=== PATIENT | female | born 1990 | race Caucasian/White ===

== ENCOUNTER 2017-06-14 10:00 | Emergency (ER) | payer SELFPAY ==
[2017-06-14 10:17] VITALS: BP 122/73
--- NOTE | 2017-06-14 10:53 | UC ---
Respiratory Complaint HPI - HPI Summary HPI Summary: 27yo WF smoker c/o productive cough x 3-4 days associated with yellow green sputum with pleuritic CP, denies f/c - History of Current Complaint Chief Complaint: UCRespiratory Stated Complaint: COUGH,CONGESTION,VOMITTING Time Seen by Provider: 06/14/17 10:38 Hx Obtained From: Patient Hx Last Menstrual Period: IUD in place Onset/Duration: Gradual Onset Severity Currently: Moderate Character: Cough: Productive Alleviating Factors: OTC Meds Associated Signs And Symptoms: Positive: Pleuritic Chest Pain - Allergies/Home Medications Allergies/Adverse Reactions: Allergies Allergy/AdvReac Type Severity Reaction Status Date / Time No Known Allergies Allergy Verified 06/14/17 10:11 Home Medications: Home Medications [id number] W/ APAP [Delsym Cough + Cold D... 4-00-731-325 mg/10Ml] 1 liq PO 06/14/17 [History] PMH/Surg Hx/FS Hx/Imm Hx Respiratory History: Bronchitis Other History Of: Negative For: Anticoagulant Therapy - Surgical History Surgical History: Yes Surgery Procedure, Year, and Place: Tonsillectomy, Appendectomy on 02/27/14 - Family History Known Family History: Positive: Other - NONCONTRIBUTORY - Social History Alcohol Use: None Alcohol Amount: social prior to Substance Use Type: None Substance Use Comment - Amount & Last Used: Pt reports that jemal was using substance around her over a week ago Smoking Status (MU): Light Every Day Tobacco Smoker Type: Cigarettes Amount Used/How Often: 3-5 cigs per day Have You Smoked in the Last Year: Yes Household Exposure Type: Cigarettes - Immunization History Most Recent Influenza Vaccination: 04/18/14 Most Recent Tetanus Shot: unknown Most Recent Pneumonia Vaccination: none Review of Systems Constitutional: Negative Skin: Negative Eyes: Negative ENT: Negative Respiratory: Cough Cardiovascular: Negative Gastrointestinal: Negative Genitourinary: Negative Motor: Negative Neurovascular: Negative Musculoskeletal: Negative Neurological: Negative Psychological: Negative All Other Systems Reviewed And Are Negative: Yes Physical Exam Triage Information Reviewed: Yes Vital Signs: Initial Vital Signs Temp 36.6 C 06/14/17 10:13 Pulse 74 06/14/17 10:13 Resp 16 06/14/17 10:13 BP 122/73 06/14/17 10:13 Pulse Ox 97 06/14/17 10:13 Eye Exam: Normal ENT Exam: Normal Dental Exam: Normal Neck exam: Normal Neck: Positive: 1 Respiratory: Positive: Lungs clear, Other: - coarse BS B/L. Negative: Crackles , Rhonchi, Stridor, Wheezing Cardiovascular Exam: Normal Abdominal Exam: Normal Musculoskeletal Exam: Normal Neurological Exam: Normal Psychological Exam: Normal Skin Exam: Normal UC Diagnostic Evaluation - Laboratory O2 Sat by Pulse Oximetry: 97 Respiratory Course/Dx - Differential Dx/Diagnosis Provider Diagnoses: bronchitis Discharge - Discharge Plan Condition: Stable Disposition: HOME Prescriptions: Azithromyxin DARREN (NF) [Z-Darren (Zithromax) 250 mg tabs #6] 2 tab PO .TODAY, THEN 1 DAILY #6 tab Patient Education Materials: Acute Bronchitis (ED) Referrals: No Primary Care Phys,NOPCP [Primary Care Provider] - If Needed Additional Instructions: as tolerated, take Mucinex DM OTC BID
== END 2017-06-14 10:55 | disposition home or self-care (01) ==
LOC: UCEAST 10:00
DX: J40 Bronchitis, not specified as acute or chronic (principal); Z72.0 Tobacco use; Z77.22 Contact with and (suspected) exposure to environmental tobacco smoke (acute) (chronic)
CPT/HCPCS: 99212; G0463

== ENCOUNTER 2017-07-27 21:32 | Emergency (ER) | payer SELFPAY ==
[2017-07-27 21:38] VITALS: BP 134/84
[2017-07-27] MEDS ORDERED: PROCHLORPERAZINE INJ 5 MG/ML 2 ML VIAL IM ONE (21:52)
[2017-07-27] MEDS ORDERED: HYDROmorphone INJ* 2 MG/ML CARPUJECT SYRINGE IM ONE (21:52)
--- NOTE | 2017-07-27 23:45 | ED ---
Evleio Higuera Nilda, scribed for Elan Giles MD on 07/27/17 at 2204 . Burn - HPI Summary HPI Summary: This patient is a 27 year old F presenting to [facility] accompanied by with a chief complaint of constant painful burn on right hand s/p accidentally spilling grease from pork roast on it at about 1930 this evening. The patient rates the pain 10/10 in severity. Symptoms aggravated by nothing and alleviated by cold compress. - History of Current Complaint Chief Complaint: EDBurnSmokeInh Stated Complaint: RT HAND BURN Time Seen by Provider: 07/27/17 21:47 Hx Obtained From: Patient Hx Last Menstrual Period: IUD in place Occurred: Hours Ago Current Severity: Severe Pain Intensity: 10 Pain Scale Used: 0-10 Numeric Location: RUE - right hand Character: Scald - grease Aggravating: Nothing Alleviating: Other - cold compress - Allergy/Home Medications Allergies/Adverse Reactions: Allergies Allergy/AdvReac Type Severity Reaction Status Date / Time No Known Allergies Allergy Verified 07/27/17 21:38 PMH/Surg Hx/FS Hx/Imm Hx Endocrine/Hematology History: Denies: Hx Anticoagulant Therapy, Hx Blood Disorders, Hx Blood Transfusions, Hx Bone Marrow Disease, Hx Diabetes, Hx Systemic Lupus Erythematosus, Hx Sickle Cell Disease, Hx Thyroid Disease, Hx Anemia, Hx Unexplained Bleeding, Other Endocrine/Hematological Disorders Cardiovascular History: Denies: Hx Hypertension Respiratory History: Denies: Hx Asthma, Hx Chronic Obstructive Pulmonary Disease (COPD) GI History: Reports: Other GI Disorders - Gall bladder "sludge" Denies: Hx Ulcer History: Reports: Hx Kidney Stones Musculoskeletal History: Reports: Hx Scoliosis Sensory History: Reports: Hx Contacts or Glasses Denies: Other Sensory Impairments Opthamlomology History: Reports: Hx Contacts or Glasses Denies: Other Sensory Impairments Neurological History: Denies: Hx Headaches, Other Neuro Impairments/Disorders Psychiatric History: Denies: Other Psychiatric Issues/Disorders - Cancer History Cancer Type, 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 Hx Chemotherapy: No Hx Radiation Therapy: No Hx Palliative Cancer Treatment: No - Surgical History Surgery Procedure, Year, and Place: Tonsillectomy, Appendectomy on 02/27/14 Hx Anesthesia Reactions: No - Immunization History Date of Tetanus Vaccine: PT STATES UNSURE Date of Influenza Vaccine: NONE Infectious Disease History: No Infectious Disease History: Denies: Hx Clostridium Difficile, Hx Hepatitis, Hx Human Immunodeficiency Virus (HIV), Hx of Known/Suspected MRSA, Hx Shingles, Hx Tuberculosis, Traveled Outside the [place] in Last 30 Days - Family History Known Family History: Positive: Diabetes, Other - NONCONTRIBUTORY - Social History Lives: With Family Alcohol Use: None Alcohol Amount: social prior to Substance Use Type: Reports: None Substance Use Comment - Amount & Last Used: Pt reports that jemal was using substance around her over a week ago Smoking Status (MU): Light Every Day Tobacco Smoker Type: Cigarettes Amount Used/How Often: 3-5 cigs per day Have You Smoked in the Last Year: Yes Review of Systems Negative: Shortness Of Breath Positive: Other - burn on right hand All Other Systems Reviewed And Are Negative: Yes Physical Exam - Summary Physical Exam Summary: VITAL SIGNS: Reviewed. GENERAL: Patient is a well-developed and nourished female who is lying comfortable in the stretcher. Patient is not in any acute respiratory distress. HEAD AND FACE: No signs of trauma. No ecchymosis, hematomas or skull depressions. No sinus tenderness. EYES: PERRLA, EOMI x 2, No injected conjunctiva, no nystagmus. EARS: Hearing grossly intact. Ear canals and tympanic membranes are within normal limits. MOUTH: Oropharynx within normal limits. NECK: Supple, trachea is midline, no adenopathy, no JVD, no carotid bruit, no c- spine tenderness, neck with full ROM. CHEST: Symmetric, no tenderness at palpation LUNGS: Clear to auscultation bilaterally. No wheezing or crackles. CVS: Regular rate and rhythm, S1 and S2 present, no murmurs or gallops appreciated. ABDOMEN: Soft, non-tender. No signs of distention. No rebound no guarding, and no masses palpated. Bowel sounds are normal. EXTREMITIES: FROM in all major joints, no edema, no cyanosis or clubbing. NEURO: Alert and oriented x 3. No acute neurological deficits. Speech is normal and follows commands. SKIN: Dry and warm, 1st degree over dorsum of right hand Triage Information Reviewed: Yes Vital Signs On Initial Exam: Initial Vitals Temp Pulse Resp BP Pulse Ox 97.5 F 69 16 134/84 97 07/27/17 21:35 07/27/17 21:35 07/27/17 21:35 07/27/17 21:35 07/27/17 21:35 Vital Signs Reviewed: Yes Burn Calculation - [place] Formula for Fluid Resuscitation Weight: 53.524 kg 24 -Hour Fluid Replacement: 0.0 Diagnostics - Vital Signs Vital Signs Temp Pulse Resp BP Pulse Ox 07/27/17 21:35 97.5 F 69 16 134/84 97 - Laboratory Lab Statement: Any lab studies that have been ordered have been reviewed, and results considered in the medical decision making process. Burn Course/Dx - Course Assessment/Plan: This patient is a 27 year old F presenting to [facility] accompanied by with a chief complaint of constant painful burn on right hand s/p accidentally spilling grease from pork roast on it at about 1930 this evening. Pt will be D/C home with pain meds and follow up and PCP. Dx of first degree burn of right hand. - Diagnoses Provider Diagnosis: First degree burn of right hand Discharge - Discharge Plan Condition: Stable Disposition: HOME Prescriptions: oxyCODONE/Acetamin 5/325 MG* [Percocet 5/325 TAB*] 1 tab PO Q6H PRN #14 tab MDD 4 PRN Reason: Pain Patient Education Materials: Superficial Burn (ED) Referrals: [facility]IAN REFERRAL [Outside] - 3 Days No Primary Care Phys,NOPCP [Primary Care Provider] - Additional Instructions: RETURN TO THE EMERGENCY DEPARTMENT FOR CHANGING OR WORSENING SYMPTOMS The documentation as recorded by the Evelio wade Nilda accurately reflects the service I personally performed and the decisions made by me, Elan Giles MD.
== END 2017-07-28 00:04 | disposition home or self-care (01) ==
LOC: ED 21:32
DX: T23.161A Burn of first degree of back of right hand, initial encounter (principal); X12.XXXA Contact with other hot fluids, initial encounter; Y93.G3 Activity, cooking and baking; Y92.9 Unspecified place or not applicable; F17.210 Nicotine dependence, cigarettes, uncomplicated
CPT/HCPCS: 96372; 99282; J0780; J1170

== ENCOUNTER 2017-07-31 10:42 | Emergency (ER) | payer SELFPAY ==
[2017-07-31 10:50] VITALS: BP 101/73
--- NOTE | 2017-07-31 11:42 | UC ---
HPI BURN - HPI Summary HPI Summary: Burnt back of right hand near thumb and index finger entire area about 8cm diameter---does have 3 smaller areas of blister that have opened and has purents areas , patient reports increased pain in hand and fingers, no fever or streaking - History of Current Complaint Chief Complaint: UCBurn Stated Complaint: RIGHT HAND BURN Time Seen by Provider: 07/31/17 11:32 Hx Obtained From: Patient Hx Last Menstrual Period: IUD Occurred: Days Ago - 4 Length of Exposure: Seconds Onset Severity: Moderate Current Severity: Moderate Pain Intensity: 6 Pain Scale Used: 0-10 Numeric Location: RUE Character: Direct Thermal Contact Aggravating Factor(s): Other - touch movement Alleviating Factor(s): Nothing Associated Signs & Symptoms: Positive: Negative Occupational Injury: No - Allergy/Home Medications Allergies/Adverse Reactions: Allergies Allergy/AdvReac Type Severity Reaction Status Date / Time No Known Allergies Allergy Verified 07/31/17 10:50 Home Medications: Home Medications Ibuprofen [Ibuprofen 200 MG] 600 mg PO Q6HR PRN 07/31/17 [History Confirmed ] PMH/Surg Hx/FS Hx/Imm Hx Previously Healthy: Yes Other History Of: Negative For: Anticoagulant Therapy - Surgical History Surgical History: Yes Surgery Procedure, Year, and Place: Tonsillectomy, Appendectomy on 02/27/14 - Family History Known Family History: Positive: Diabetes, Other - NONCONTRIBUTORY - Social History Occupation: Employed Full-time Lives: With Family Alcohol Use: Occasionally Alcohol Amount: social prior to Substance Use Type: None, Sedatives Smoking Status (MU): Light Every Day Tobacco Smoker Type: Cigarettes Amount Used/How Often: 8cig/day Have You Smoked in the Last Year: Yes Household Exposure Type: Cigarettes - Immunization History Most Recent Influenza Vaccination: NOT UTD Most Recent Tetanus Shot: UNKNOWN Most Recent Pneumonia Vaccination: none Review of Systems Constitutional: Negative Skin: Other - 8 cm diameter burn back of right hand with 3 seperat purulent areas Eyes: Negative ENT: Negative Respiratory: Negative Cardiovascular: Negative Gastrointestinal: Negative Genitourinary: Negative Motor: Negative Neurovascular: Negative Musculoskeletal: Negative, Arthralgia Neurological: Negative Psychological: Negative Is Patient Immunocompromised?: No All Other Systems Reviewed And Are Negative: Yes Physical Exam Triage Information Reviewed: Yes Appearance: Well-Appearing, Well-Nourished, Pain Distress Vital Signs: Initial Vital Signs Temp 98.4 F 07/31/17 10:46 Pulse 81 07/31/17 10:46 Resp 16 07/31/17 10:46 BP 101/73 07/31/17 10:46 Pulse Ox 99 07/31/17 10:46 Vital Signs Reviewed: Yes Eye Exam: Normal Eyes: Positive: Conjunctiva Clear ENT Exam: Normal ENT: Positive: Normal ENT inspection, Hearing grossly normal, Pharynx normal, TMs normal, Uvula midline. Negative: Nasal congestion, TM bulging, Tonsillar swelling, Tonsillar exudate, Trismus, Muffled voice, Hoarse voice Dental Exam: Normal Neck exam: Normal Neck: Positive: Supple, Nontender, No Lymphadenopathy Respiratory Exam: Normal Respiratory: Positive: Chest non-tender, Lungs clear, Normal breath sounds, No respiratory distress, No accessory muscle use Cardiovascular Exam: Normal Cardiovascular: Positive: RRR, No Murmur, Pulses Normal, Brisk Capillary Refill Musculoskeletal Exam: Normal Musculoskeletal: Positive: Strength Intact, ROM Intact, No Edema Neurological Exam: Normal Neurological: Positive: Alert, Muscle Tone Normal Psychological Exam: Normal Psychological: Positive: Normal Response To Family Skin Exam: Other Skin: Positive: Other - 4 day old partial thickness burn as described Burn Calculation - Trunk / Post. 18% Trunk /Post. 2nd De - abour 1/2 % right hand - Total 2nd Deg Total: 1 Total % BSA: 1 - [place] Formula for Fluid Resuscitation Weight: 52.163 kg Total % BSA 2nd & 3rd Degree: 1 24 -Hour Fluid Replacement: 208.7 Re-Evaluation - Re-Evaluation First Eval Change: Improved - silvadened dressing with vaseline guze and tegaderm Course/Dx Burn - Course Course Of Treatment: silvadene, keflex, pain med, dsd 1-2 times a day follow with burn surgeon - Diagnoses Clinic Provider Diagnoses: <1/2% burn back of right hand-partial thickness Discharge - Discharge Plan Condition: Stable Disposition: HOME Prescriptions: Cephalexin CAP* [Keflex CAP*] 500 mg PO QID #28 cap Ibuprofen TAB* [Motrin TAB* 600 MG] 600 mg PO Q6H PRN #40 tab PRN Reason: Pain - Mild To Moderate oxyCODONE/Acetamin 5/325 MG* [Percocet 5/325 TAB*] 1 tab PO Q6H PRN #16 tab MDD 4 PRN Reason: Pain - Moderate To Severe Patient Education Materials: Second Degree Burn (ED) Forms: *Work Release Referrals: Rudi London MD [Medical Doctor] - 4 Days
[2017-07-31] MEDS ORDERED: Silver Sulfadiazine 1%* 20 GM TOPICAL ONE (11:47)
[2017-07-31] MEDS ORDERED: Tetan/Diph/Pertus SYR(Tdap)* 0.5 ML SYR(BOOSTRIX) use SYR IM ONE (11:49)
[2017-07-31] MEDS ORDERED: Ibuprofen TAB* 600 MG PO ONE (12:15)
== END 2017-07-31 12:36 | disposition home or self-care (01) ==
LOC: UCEAST 10:42
DX: T23.261A Burn of second degree of back of right hand, initial encounter (principal); T31.0 Burns involving less than 10% of body surface; X08.8XXA Exposure to other specified smoke, fire and flames, initial encounter; Y93.9 Activity, unspecified; Y92.9 Unspecified place or not applicable; Z23 Encounter for immunization; F17.210 Nicotine dependence, cigarettes, uncomplicated
CPT/HCPCS: 16020; 90471; 90715; 99212; A9270-GY; G0463

== ENCOUNTER 2017-08-18 09:17 | Emergency (ER) | payer SELFPAY ==
[2017-08-18 09:32] VITALS: BP 119/78
[2017-08-18] MEDS ORDERED: predniSONE TAB* 20 MG PO ONE (09:32)
--- NOTE | 2017-08-18 09:36 | UC ---
Skin Complaint HPI - HPI Summary HPI Summary: 27 yo female developed hives yesterday AM has taken nothing for them worse today recent URI no angioedema no stridor no throat tightness no tongue swelling no new meds (finished keflex one week ago) - History of Current Complaint Chief Complaint: UCAllergicReaction Time Seen by Provider: 08/18/17 09:23 Stated Complaint: ALLERGIC REACTION Hx Obtained From: Patient Hx Last Menstrual Period: iud Onset/Duration: Gradual Onset, Lasting Days Timing: Constant Onset Severity: Moderate Pain Intensity: 0 Pain Scale Used: 0-10 Numeric Location: Diffuse Character: Pruritus, Hives Aggravating Factor(s): Clothing, Showering Alleviating Factor(s): Nothing Associated Signs & Symptoms: Positive: Rash - Allergy/Home Medications Allergies/Adverse Reactions: Allergies Allergy/AdvReac Type Severity Reaction Status Date / Time No Known Allergies Allergy Verified 07/31/17 10:50 Review of Systems Constitutional: Negative Skin: Rash Eyes: Negative ENT: Other - recent mild URI Respiratory: Negative Cardiovascular: Negative Gastrointestinal: Negative Genitourinary: Negative Motor: Negative Neurovascular: Negative Musculoskeletal: Negative Neurological: Negative Psychological: Negative Is Patient Immunocompromised?: No All Other Systems Reviewed And Are Negative: Yes PMH/Surg Hx/FS Hx/Imm Hx Previously Healthy: Yes Other History Of: Negative For: Anticoagulant Therapy - Surgical History Surgical History: Yes Surgery Procedure, Year, and Place: Tonsillectomy, Appendectomy on 02/27/14 - Family History Known Family History: Positive: Diabetes, Other - NONCONTRIBUTORY - Social History Alcohol Use: Occasionally Alcohol Amount: social prior to Substance Use Type: None, Sedatives Substance Use Comment - Amount & Last Used: Pt reports that jemal was using substance around her over a week ago Smoking Status (MU): Light Every Day Tobacco Smoker Type: Cigarettes Amount Used/How Often: 8cig/day Have You Smoked in the Last Year: Yes Household Exposure Type: Cigarettes - Immunization History Most Recent Influenza Vaccination: NOT UTD Most Recent Tetanus Shot: UNKNOWN Most Recent Pneumonia Vaccination: none Physical Exam Triage Information Reviewed: Yes Appearance: Well-Appearing, No Pain Distress, Well-Nourished Vital Signs: Initial Vital Signs Temp 98.1 F 08/18/17 09:26 Pulse 120 08/18/17 09:26 Resp 18 08/18/17 09:26 BP 119/78 08/18/17 09:26 Pulse Ox 99 08/18/17 09:26 Vital Signs Reviewed: Yes Eyes: Positive: Conjunctiva Clear ENT: Positive: Hearing grossly normal. Negative: Nasal congestion, Nasal drainage, TMs normal Neck: Positive: Supple, Nontender Respiratory: Positive: Lungs clear, Normal breath sounds, No respiratory distress Cardiovascular: Positive: RRR, No Murmur Neurological: Positive: Alert Psychological Exam: Normal Skin: Positive: Other - urticaria Course/Dx - Diagnoses Provider Diagnoses: urticaria Discharge - Discharge Plan Condition: Stable Disposition: HOME Prescriptions: hydrOXYzine HCL TAB* [Atarax TAB*] 25 mg PO QID PRN #20 tab PRN Reason: Itching predniSONE [Prednisone] 60 mg PO DAILY #6 tab Patient Education Materials: Urticaria (ED) Forms: *Work Release Referrals: [facility] REFERR[facility] [Outside] - If Needed Additional Instructions: the antihistamine will cause drowsiness you had today's dose of prednisone recheck in 3-4 days if not better recheck for worsening symptoms
== END 2017-08-18 09:48 | disposition home or self-care (01) ==
LOC: UCEAST 09:17
DX: L50.9 Urticaria, unspecified (principal); F17.210 Nicotine dependence, cigarettes, uncomplicated
CPT/HCPCS: 99212; G0463; J7512

== ENCOUNTER 2017-08-19 03:13 | Emergency (ER) | payer SELFPAY ==
[2017-08-19] MEDS ORDERED: LORazepam INJ* 2 MG/ML 1 ML VIAL IV PUSH ONE (03:45)
[2017-08-19] MEDS ORDERED: NS 0.9% 1000 ML* 1,000 ML IV ONE (03:46)
[2017-08-19] MEDS ORDERED: Albuterol/Ipratropium NEB.SOL* Albuterol 2.5 MG/Ipratropium 0.5 MG 3 ML INH ONE (04:37)
[2017-08-19] MEDS ORDERED: methylPREDNISolone 125 MG* 2 ML VIAL IV ONE (04:39)
[2017-08-19] MEDS: Albuterol 2.5 MG/3 ML NEB.SOL* (0.083%) INH SCH (04:57)
[2017-08-19] MEDS ORDERED: Albuterol HFA INHALER* 8 gm MDI INH PRN (05:47)
[2017-08-19 06:43] VITALS: BP 109/51
--- NOTE | 2017-08-19 06:48 | ED ---
Todd Higuera Gabriel, scribed for Elan Giles MD on 08/19/17 at 0415 . Respiratory - HPI Summary HPI Summary: This patient is a 27 year old F presenting to [facility] with a chief complaint of trouble breathing that began earlier tonight. Patient was seen at yesterday for her hives and was given prednisone and hydroxyzine. Pt denies itching of hives. Last dose of prednisone was at 0900 yesterday. Patient believed she was having a panic attack yesterday. No hx of asthma. - History of Current Complaint Chief Complaint: EDAllergicReaction Stated Complaint: HIVES, DIFFICULTY BREATHING Time Seen by Provider: 08/19/17 03:30 Hx Obtained From: Patient Onset/Duration: Still Present Timing: Constant Initial Severity: Mild Current Severity: Mild Pain Intensity: 0 Associated Signs and Symptoms: Negative - itching - Allergy/Home Medications Allergies/Adverse Reactions: Allergies Allergy/AdvReac Type Severity Reaction Status Date / Time No Known Allergies Allergy Verified 08/19/17 03:21 PMH/Surg Hx/FS Hx/Imm Hx Endocrine/Hematology History: Denies: Hx Anticoagulant Therapy, Hx Blood Disorders, Hx Blood Transfusions, Hx Bone Marrow Disease, Hx Diabetes, Hx Systemic Lupus Erythematosus, Hx Sickle Cell Disease, Hx Thyroid Disease, Hx Anemia, Hx Unexplained Bleeding, Other Endocrine/Hematological Disorders Cardiovascular History: Denies: Hx Hypertension Respiratory History: Denies: Hx Asthma, Hx Chronic Obstructive Pulmonary Disease (COPD) GI History: Reports: Other GI Disorders - Gall bladder "sludge" Denies: Hx Ulcer History: Reports: Hx Kidney Stones Musculoskeletal History: Reports: Hx Scoliosis Sensory History: Reports: Hx Contacts or Glasses Denies: Other Sensory Impairments Opthamlomology History: Reports: Hx Contacts or Glasses Denies: Other Sensory Impairments Neurological History: Denies: Hx Headaches, Other Neuro Impairments/Disorders Psychiatric History: Denies: Other Psychiatric Issues/Disorders - Cancer History Cancer Type, 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 Hx Chemotherapy: No Hx Radiation Therapy: No Hx Palliative Cancer Treatment: No - Surgical History Surgery Procedure, Year, and Place: Tonsillectomy, Appendectomy on 02/27/14 Hx Anesthesia Reactions: No - Immunization History Date of Tetanus Vaccine: PT STATES UNSURE Date of Influenza Vaccine: NONE Infectious Disease History: No Infectious Disease History: Denies: Hx Clostridium Difficile, Hx Hepatitis, Hx Human Immunodeficiency Virus (HIV), Hx of Known/Suspected MRSA, Hx Shingles, Hx Tuberculosis, Traveled Outside the [place] in Last 30 Days - Family History Known Family History: Positive: Diabetes, Other - NONCONTRIBUTORY - Social History Alcohol Use: Occasionally Alcohol Amount: social prior to Substance Use Type: Reports: Marijuana Substance Use Comment - Amount & Last Used: Pt reports that jemal was using substance around her over a week ago Smoking Status (MU): Light Every Day Tobacco Smoker Type: Cigarettes Amount Used/How Often: 8cig/day Have You Smoked in the Last Year: Yes Review of Systems Positive: Other - trouble breathing Positive: Other - hives without itching All Other Systems Reviewed And Are Negative: Yes Physical Exam - Summary Physical Exam Summary: VITAL SIGNS: Reviewed. GENERAL: Patient is a well-developed and nourished female who is lying comfortable in the stretcher. Patient is not in any acute respiratory distress. HEAD AND FACE: No signs of trauma. No ecchymosis, hematomas or skull depressions. No sinus tenderness. EYES: PERRLA, EOMI x 2, No injected conjunctiva, no nystagmus. EARS: Hearing grossly intact. Ear canals and tympanic membranes are within normal limits. MOUTH: Oropharynx within normal limits. NECK: Supple, trachea is midline, no adenopathy, no JVD, no carotid bruit, no c- spine tenderness, neck with full ROM. CHEST: Symmetric, no tenderness at palpation LUNGS: Clear to auscultation bilaterally. No wheezing or crackles. CVS: Regular rate and rhythm, S1 and S2 present, no murmurs or gallops appreciated. ABDOMEN: Soft, non-tender. No signs of distention. No rebound no guarding, and no masses palpated. Bowel sounds are normal. EXTREMITIES: FROM in all major joints, no edema, no cyanosis or clubbing. NEURO: Alert and oriented x 3. No acute neurological deficits. Speech is normal and follows commands. SKIN: Dry and warm with a diffuse macular rash Triage Information Reviewed: Yes Vital Signs On Initial Exam: Initial Vitals Temp Pulse Resp BP Pulse Ox 98.5 F 98 28 131/72 100 08/19/17 03:18 08/19/17 03:18 08/19/17 03:18 08/19/17 03:18 02/06/18 03:18 Vital Signs Reviewed: Yes Diagnostics - Vital Signs Vital Signs Temp Pulse Resp BP Pulse Ox 08/19/17 04:04 15 08/19/17 03:18 98.5 F 98 28 131/72 100 - Laboratory Lab Statement: Any lab studies that have been ordered have been reviewed, and results considered in the medical decision making process. Disposition - Course Assessment/Plan: This patient is a 27 year old F presenting to [facility] with a chief complaint of trouble breathing that began earlier tonight. Patient was seen at yesterday for her hives and was given prednisone and hydroxyzine. Pt denies itching of hives. Last dose of prednisone was at 0900 yesterday. Patient believed she was having a panic attack yesterday. No hx of asthma. Test results with no significant abnormalities. In the ED course the patient was given albuterol, Ativan, duoneb, and IV fluids. Dx allergic reaction, RAD. Patient will be discharged with prescription for hydroxyzine and follow up from PCP. The patient is agreeable with this plan. - Diagnoses Provider Diagnoses: RAD (reactive airway disease), Allergic reaction Discharge - Discharge Plan Condition: Stable Disposition: HOME Prescriptions: hydrOXYzine PAMOATE CAP* [Vistaril CAP*] 50 mg PO Q6HR PRN #20 cap MDD 4 PRN Reason: Itching Patient Education Materials: Reactive Airways Disease (ED) Referrals: [facility] [Outside] - 3 Days No Primary Care Phys,NOPCP [Primary Care Provider] - Additional Instructions: RETURN TO EMERGENCY DEPARTMENT FOR ANY NEW OR WORSENING SYMPTOMS The documentation as recorded by the Todd wade Gabriel accurately reflects the service I personally performed and the decisions made by , Elan Giles MD.
== END 2017-08-19 06:43 | disposition home or self-care (01) ==
LOC: ED 03:13
DX: J45.909 Unspecified asthma, uncomplicated (principal); T78.40XA Allergy, unspecified, initial encounter; F17.210 Nicotine dependence, cigarettes, uncomplicated
CPT/HCPCS: 87502; 94640; 96361; 96374; 96375; 99283; A9270-GY; J2060; J2930

== ENCOUNTER 2018-03-30 16:05 | Emergency (ER) | payer SELFPAY ==
[2018-03-30 16:50] VITALS: BP 148/82
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
[2018-03-30] MEDS ORDERED: Ibuprofen TAB* 600 MG PO ONE (17:51)
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
== END 2018-03-30 19:30 | disposition home or self-care (01) ==
LOC: UCEAST 16:05
DX: S46.912A Strain of unspecified muscle, fascia and tendon at shoulder and upper arm level, left arm, initial encounter (principal); S16.1XXA Strain of muscle, fascia and tendon at neck level, initial encounter; V43.52XA Car driver injured in collision with other type car in traffic accident, initial encounter; Y93.89 Activity, other specified; Y92.410 Unspecified street and highway as the place of occurrence of the external cause; F17.210 Nicotine dependence, cigarettes, uncomplicated
CPT/HCPCS: 72125; 99213; A9270-GY; G0463

== ENCOUNTER 2018-07-25 09:50 | Emergency (ER) | payer SELFPAY ==
[2018-07-25 10:10] VITALS: BP 108/75
[2018-07-25 10:49] LABS: Influenza A Molecular NEGATIVE (Negative); Influenza B Molecular NEGATIVE (Negative)
--- NOTE | 2018-07-25 12:48 | UC ---
Throat Pain/Nasal Gilberto HPI - HPI Summary HPI Summary: Pt presents with 8 days progressive sinus congestion, left ear pain, cough. Pt with green secretions from nose and with cough. No wheeze. tactile temp. Children sick x 2 days - resolved Pt has used multiple OTC meds (mucinex, apap , robitussin, motrin) with little improvement.REports facial discomfort pt states not medications reviewed this visit - History of Current Complaint Chief Complaint: UCGeneralIllness Stated Complaint: SORE THROAT, COUGH, CHILLS Time Seen by Provider: 07/25/18 10:22 Hx Obtained From: Patient Hx Last Menstrual Period: unknown Pain Intensity: 0 - Allergies/Home Medications Allergies/Adverse Reactions: Allergies Allergy/AdvReac Type Severity Reaction Status Date / Time No Known Allergies Allergy Verified 07/25/18 10:11 Home Medications: Home Medications Ibuprofen 600 mg PO DAILY WITH MEAL 07/25/18 [History Confirmed 07/25/18] PMH/Surg Hx/FS Hx/Imm Hx Previously Healthy: Yes Other History Of: Negative For: Anticoagulant Therapy - Surgical History Surgical History: Yes Surgery Procedure, Year, and Place: Tonsillectomy, Appendectomy on 02/27/14 - Family History Known Family History: Positive: Diabetes, Non-Contributory - Social History Occupation: Works From/At Home Lives: With Family Alcohol Use: Occasionally Alcohol Amount: social prior to Substance Use Type: Marijuana Substance Use Comment - Amount & Last Used: Pt reports that jemal was using substance around her over a week ago Smoking Status (MU): Heavy Every Day Tobacco Smoker Type: Cigarettes Amount Used/How Often: 8cig/day Have You Smoked in the Last Year: Yes Household Exposure Type: Cigarettes - Immunization History Most Recent Influenza Vaccination: NOT UTD Most Recent Tetanus Shot: UNKNOWN Most Recent Pneumonia Vaccination: none Review of Systems All Other Systems Reviewed And Are Negative: Yes Constitutional: Positive: Fever, Chills, Fatigue ENT: Positive: Ear Ache, Nasal Discharge, Sinus Congestion, Sinus Pain/ Tenderness Respiratory: Positive: Cough Physical Exam - Summary Physical Exam Summary: Vital Signs Reviewed: Yes A+Ox3, no distress Eyes: Conjunctiva Clear, HELENE. EOM intact and full ENT: Hearing grossly normal left ear ++ fluid, erythema turbinates inflammed, + PND, mmoist, uvula midline, no exudate, no erythema Neck: Positive: Supple Respiratory: Positive: No respiratory distress, No accessory muscle use + CTA throughout no w/r, mild intermittent cough - no increased WOB Cardiovascular: RRR nl s1, s2 no m/r CBT <2 sec abd soft + BS nt/nd no guarding, no distension Musculoskeletal Exam: ALBA x 4 without difficulty Strength Intact, ROM Intact Neurological: Positive: Alert, + sensation throughout Psychological: Positive: Normal Response To Family Skin: Positive: no rash, no ecchymosis Triage Information Reviewed: Yes Vital Signs: Initial Vital Signs Temp 98.9 F 07/25/18 10:07 Pulse 84 07/25/18 10:07 Resp 18 07/25/18 10:07 BP 108/75 07/25/18 10:07 Pulse Ox 99 07/25/18 10:07 Throat Pain/Nasal Course/Dx - Course Course Of Treatment: Patient presents to urgent care reporting 8 days of progressive sinus pressure postnasal drip left ear pain and cough. To productive of yellow secretions from her nose and cough. Patient reports fevers. Patient's taken multiple [id number] preparations with little improvement. Patient has nausea vomiting. No rash. Patient's children are sick but lasted 2 days mid resolved. Patient's vital signs reviewed. Patient with left otitis media as well as exam consistent with rhinosinusitis. Patient' s fluid strep are negative. We'll place patient on Flonase as well as antibiotic. Patient states she gets yeast infections with antibiotics also given a dose of Diflucan. Discussed with patient humidify air, secretion precaution. Return precaution. Patient comfortable in agreement with plan. - Differential Dx/Diagnosis Provider Diagnosis: Otitis media Discharge - Sign-Out/Discharge Documenting (check all that apply): Patient Departure All imaging exams completed and their final reports reviewed: No Studies - Discharge Plan Condition: Stable Disposition: HOME Prescriptions: Amoxicillin/Clavulanate TAB* [Augmentin TAB 875*] 875 mg PO BID #20 tab Fluconazole [Diflucan 150 MG (NF)] 150 mg PO ONCE PRN #1 tab PRN Reason: vaginal yeast infection Fluticasone NASAL SPRAY 50MCG* [Flonase NASAL SPRAY 50MCG*] 2 spray BOTH NARES DAILY #1 btl Patient Education Materials: Rhinosinusitis (ED), Serous Otitis Media (ED) Referrals: No Primary Care Phys,NOPCP [Primary Care Provider] - Additional Instructions: - Stay well hydrated. Drink plenty of non-alcoholic, non-caffinated beverages. - Alternate ibuprofen (Advil, Motrin) 600mg and Tylenol every 3 hours for pain or fever. Take with food. Do NOT take for more than 4-5 days. - These infections are spread by secretions - do NOT share eating or drinking utensils - clean items you share with other people such as cell phones, computer mouse, TV remote, computer tablets,etc. Once you have been antibiotics for 2 days, change your toothbrush and your pillowcase. - get plenty of restful sleep - humidify the air in the room where you sleep - boil water, run a hot steam shower, vaporizer, cups of water by heat register - okay to take over the counter decongestant and cough medication - use nasal spray as prescribed -you have been prescribed diflucan - okay to take if you develop a yeast infection related to antibiotics - contact your doctor or return with questions or concerns - Billing Disposition and Condition Condition: STABLE Disposition: Home
== END 2018-07-25 11:15 | disposition home or self-care (01) ==
LOC: UCEAST 09:50
DX: H66.92 Otitis media, unspecified, left ear (principal); F17.210 Nicotine dependence, cigarettes, uncomplicated
CPT/HCPCS: 87651; 99212; G0463

== ENCOUNTER 2019-04-01 08:15 | Emergency (ER) | payer OTHER ==
[2019-04-01 08:31] VITALS: BP 131/82
[2019-04-01] MEDS ORDERED: Ibuprofen TAB* 600 MG PO ONE (08:50)
[2019-04-01] MEDS ORDERED: Acetaminophen TAB* 325 MG PO ONE (08:50)
[2019-04-01] MEDS ORDERED: Phenazopyridine TAB* 100 MG PO ONE (08:51)
--- NOTE | 2019-04-01 09:23 | UC ---
Complaint Female HPI - HPI Summary HPI Summary: CHIEF COMPLAINT and HPI: This is a 28-year-old with significant supra pubic pain for less than 24 hours. She does have a history of a right kidney stone many years ago, but she denies that this pain is similar. This condition began yesterday, and she complains of frequency, urgency and severe dysuria. She denies CVA tenderness. patient has had a IUD in place for 4 years without complaint or complication. She is afebrile. She is had an appendectomy. Description of Pain: VITAL SIGNS & SaO2 REVIEWED. Within normal limits unless noted here: 131/82. 10 /10 bladder pain. NURSES NOTE REVIEWED. - History Of Current Complaint Chief Complaint: UCGU Stated Complaint: URINARY ISSUE Time Seen by Provider: 04/01/19 08:49 Hx Obtained From: Patient Hx Last Menstrual Period: IUD Pain Intensity: 10 - Allergies/Home Medications Allergies/Adverse Reactions: Allergies Allergy/AdvReac Type Severity Reaction Status Date / Time No Known Allergies Allergy Verified 04/01/19 08:31 PMH/Surg Hx/FS Hx/Imm Hx - Additional Past Medical History Additional PMH: PAST MEDICAL HISTORY- CHRONIC and RECURRENT HEALTH PROBLEM LIST REVIEWED. Information relevant to present complaint: IUD for contraception. Patient is sexually active, but there is no new partner. She denies a previous UTI. She does have a history of a right kidney stone. VISIT HISTORY REVIEWED: she is on no antihypertensive medication. MEDICATIONS & ALLERGIES REVIEWED. HYPERTENSION STATUS:no history of hypertension. FAMILY HISTORY: Positive for: hypertension, cardiovascular disease, stroke, diabetes, cancer. SOCIAL HISTORY: smoker and works at [employer]. Previously Healthy: Yes Other History Of: Negative For: Anticoagulant Therapy - Surgical History Surgical History: Yes Surgery Procedure, Year, and Place: Tonsillectomy, Appendectomy on 02/27/14 - Family History Known Family History: Positive: Diabetes, Other - NONCONTRIBUTORY, Non- Contributory - Social History Alcohol Use: Weekly Alcohol Amount: three nights Substance Use Type: Marijuana Substance Use Comment - Amount & Last Used: occasionally Smoking Status (MU): Light Every Day Tobacco Smoker Type: Cigarettes Amount Used/How Often: 8cig/day Have You Smoked in the Last Year: Yes Household Exposure Type: Cigarettes - Immunization History Most Recent Influenza Vaccination: NOT UTD Most Recent Tetanus Shot: UNKNOWN Most Recent Pneumonia Vaccination: none Review of Systems All Other Systems Reviewed And Are Negative: Yes Constitutional: Positive: Negative. Negative: Fever Skin: Positive: Negative Eyes: Positive: Negative Respiratory: Positive: Negative Cardiovascular: Positive: Negative Gastrointestinal: Positive: Abdominal Pain. Negative: Vomiting, Diarrhea - supra pubic Genitourinary: Positive: Dysuria, Hematuria, Frequency, Urgency. Negative: Vaginal/Penile Burning, Vaginal/Penile Discharge Is Patient Immunocompromised?: No Physical Exam - Summary Physical Exam Summary: Appearance: The patient is well-appearing, is in no pain or distress, and is well-nourished. Eyes: Conjunctiva are clear. Pupils are equal and reactive to light and accommodation. Extra ocular muscle movement is intact. ENT: The hearing is grossly normal, the pharynx is normal, and the TMs are normal. There is no muffled or hoarse voice. No stridor. Neck: The neck is supple and there is no lymphadenopathy. Respiratory: The chest is non-tender to palpation and without crepitus. The lungs are clear, there are normal breath sounds, and there is no respiratory distress. No wheezes, rales or rhonchi. Cardiovascular: Heart sounds reveal a regular rate and rhythm. There are no clicks, rubs or murmurs. There are no carotid bruits or thrills. Circulation is grossly intact. Abdomen: The abdomen is soft and nontender. There is no organomegaly. Bowel sounds are present and within normal limits. No point tenderness at McBurneys No CVA tenderness. Examination of the bladder shows tenderness to palpation. There is no tenderness in the right or left lower quadrant. There are no abdominal peritoneal signs. Musculoskeletal: Strength is intact. The patient moves all extremities. Neurological: The patient is alert. Motor and sensory are examination grossly intact. Speech is normal. Psychological: The patient displays age appropriate behavior, and is conversant. GCS=15. Skin: Negative for rashes. Triage Information Reviewed: Yes Vital Signs: Initial Vital Signs Temp 98.1 F 04/01/19 08:25 Pulse 95 04/01/19 08:25 Resp 16 04/01/19 08:25 BP 131/82 04/01/19 08:25 Pulse Ox 100 04/01/19 08:25 Complaint Female Dx - Course Course Of Treatment: healthy 28-year-old female with less than 24 hour history of dysuria, frequency and urgency. Urine analysis shows 2+ blood, trace protein, nitrites, negative leukocytes, 1+. . There is no evidence of pyelonephritis. She denies vaginal discharge. She denies multiple sexual partners. She has no history of PID. She does have a history of a right kidney stone. My diagnosis is cystitis. She will begin acetaminophen, ibuprofen, Pyridium, and Keflex 500 mg twice a day for 7 days. She knows to go to the emergency department if she is not urinating within the next 8 hours. . She knows to follow up with her condition is not improving in 48 hours. - Differential Dx/Diagnosis Differential Diagnosis/HQI/PQRI: Sexually Transmitted Disease, Ureteral Stone, Urinary Tract Infection Provider Diagnosis: Cystitis Discharge ED - Sign-Out/Discharge Documenting (check all that apply): Patient Departure All imaging exams completed and their final reports reviewed: No Studies - Discharge Plan Condition: Stable Disposition: HOME Prescriptions: Cephalexin CAP* [Keflex 500 CAP*] 500 mg PO BID #14 cap MDD 2 Phenazopyridine TAB* [Pyridium TAB*] 200 mdi PO TID #6 tab MDD 3 TABS Patient Education Materials: Urinary Tract Infection in Women (DC) Forms: *Work Release Referrals: No Primary Care Phys,NOPCP [Primary Care Provider] - Additional Instructions: WE DISCUSSED: PLEASE SEEK CARE AT THE EMERGENCY DEPARTMENT IF SYMPTOMS WORSEN OR IF NEW SYMPTOMS DEVELOP. GO TO ED FOR INCREASING PAIN OR NO URINATION IN 8 HOURS. FOLLOW UP WITH YOUR PRIMARY CARE PHYSICIAN IF CONDITION CONTINUES BEYOND 3 DAYS WITHOUT IMPROVEMENT. CALL ME IN TWO DAYS HERE IF YOU HAVE ANY QUESTIONS. YOUR DIAGNOSIS IS: CYSTITIS, BLADDER INFECTION YOUR PRESCRIPTION RECOMMENDATION IS: KEFLEX, 500MG, TWICE A DAY FOR 7 DAYS. OTHER INSTRUCTIONS: Hypertension Discharge Instructions: Your blood pressure reading today was 131/82 , indicating HYPERTENSION. Follow- up with your primary care provider within 4 weeks for blood pressure check and appropriate recommendations and treatment, as needed. This elevated blood pressure is probably related to pain. FOR PAIN AND/OR SLEEP: For pain: Ibuprofen (Motrin and other brand names) 400-600mg PLUS acetaminophen (Tylenol and other brand names) 500mg - 1000mg every 8 hours. antibiotic: KEFLEX, twice a day for 7 days. For urine pain: Pyridium, 200 MG, 3 times a day with food. Stay well hydrated. Call us for any questions or concerns. - Billing Disposition and Condition Condition: STABLE Disposition: Home
== END 2019-04-01 09:53 | disposition home or self-care (01) ==
LOC: UCEAST 08:15
DX: N30.90 Cystitis, unspecified without hematuria (principal); F17.210 Nicotine dependence, cigarettes, uncomplicated
CPT/HCPCS: 81003; 87077; 87086; 87186; 99212; A9270-GY; G0463